=== PATIENT | female | born 1940 | race Caucasian/White ===

== ENCOUNTER 2020-02-10 21:58 | Inpatient (IN) | payer MEDICARE ==
[~2020-02-10] VITALS: Ht 157.5 cm; Wt 74.7 kg
[~2020-02-10 21:58] MED LIST: ATIV1TAB10 PO; CAPT1TAB17 PO; CLAR5TAB PO; COLC1TAB13 PO; CYCL-707 PO; FURO20TA2 PO; GABA-1171 PO; KLOR10TA76 PO; LEVO75TA4 PO; LIPI10TA PO; NATU400T PO; TRAM50TA2 PO; VITATAB11 PO; VITMTA PO; ZOFR4TAB16 PO
[2020-02-11] MEDS ORDERED: LEVOTHYROXINE 75MCG TABLET (0.075MG) PO SCH
[2020-02-11 00:42] VITALS: BP 91/52
[2020-02-11] MEDS ORDERED: ACETAMINOPHEN TAB 650MG DOSE (2X325MG) PO PRN (01:00)
[2020-02-11] MEDS ORDERED: MOM 30ML SUSPENSION UDC PO PRN (01:00)
[2020-02-11] MEDS ORDERED: MAALOX 30 ML SUSP *UDC PO PRN (01:00)
[2020-02-11] MEDS: NS 1,000 ML IV SCH ×2 (01:41→18:16)
[2020-02-11] MEDS: MORPHINE 2 MG/ML 1ML VIAL (J2270) IV PRN ×5 (01:44→20:54)
[2020-02-11] MEDS ORDERED: VITA400C53 PO (01:44)
[2020-02-11] MEDS ORDERED: ALLO10TA PO (01:44)
[2020-02-11] MEDS ORDERED: LISI-538 PO (01:44)
[2020-02-11] MEDS ORDERED: VITATAB31 PO (01:44)
[2020-02-11] MEDS ORDERED: POTA20TA6 PO (01:49)
[2020-02-11] MEDS ORDERED: OMEP1CAP73 PO (01:49)
[2020-02-11] MEDS ORDERED: VENL75CA2 PO (01:49)
[2020-02-11 03:56] VITALS: BP 105/57
--- NOTE | 2020-02-11 03:59 | HPEPDOC ---
[facility] Medical History & Physical Date of Admission Feb 11, 2020 Date of Service: Feb 11, 2020 Attending Physician: DOMINICK NELSON MD History and Physical TIME OF SERVICE: 1:20 am CHIEF COMPLAINT: Fall HISTORY OF PRESENT ILLNESS: This 79-year-old female reports tripping and falling walking yesterday evening. She attributes the fall to tripping over a slab of concrete because she wasn't looking where she was going while she walking. She denied having prodromal dizziness, chest pain, shortness of breath, nausea, vomiting, or diarrhea. As a result of the fall, she developed left-sided hip pain and was diagnosed with a non displaced fracture of the left femoral neck at [facility]. The rest of the workup including, CBC, CMP and chest xray was unremarkable except for WBC count of 12.5 and BUN of 24 . She was transferred here for orthopedic evaluation. REVIEW OF SYSTEMS: 12 point review of systems negative except as listed in HPI PAST MEDICAL/ SURGICAL HISTORY: Chronic hypertension Osteopenia Hypothyroidism status post partial thyroidectomy Dyslipidemia Right wrist surgery Severe diverticulitis requiring partial colectomy Appendectomy Cholecystectomy SOCIAL HISTORY: She doesn't smoke, drink, or use recreational drugs FAMILY HISTORY: CAD, diabetes, CVA ALLERGIES: Please see below. HOME MEDICATIONS: Please see below. PHYSICAL EXAMINATION: Vital Signs Date Time Temp Pulse Resp B/P (MAP) Pulse Ox O2 Delivery O2 Flow Rate FiO2 02/11/20 00:42 97.7 104 18 91/52 (65) 91 Room Air GEN: well-nourished / well developed/ NAD INTEGUMENT: not flushed/ not jaundice CVS: RRR/NMRG/ radial pulses intact / no lower extremity edema LUNGS: able to speak full sentences without stopping to take a breath / lungs are clear to auscultation bilaterally on room air ABDOMEN: Contour (flat) / soft & not tender with palpation : kirby in place MSK/EXTREMITIES: NCAT NEURO: CN 2-12 are grossly intact / speech is not dysarthric PSYCH: alert and oriented to person place and time/ able to understand and follow all commands LABORATORY DATA: See HPI IMAGING: See HPI MICROBIOLOGY: Please see below. ASSESSMENT: Ms. Schneider is a 79-year-old with a history of 2 david dyslipidemia, hypertension, hypothyroidism who was diagnosed at the left femoral neck fracture after tripping and falling; she was transferred from [facility] for orthopedic evaluation. PLAN: 1. Left femoral neck fx 2/2 mechanical fall Her RCRI score is 0 = class 1 risk, since she is older than 65, the next step is to check a pro-BNP, if it is <300 she will not need additional testing prior to proceeding with surgery Plan: admit to [facility] / NPO after midnight w IVF for surgery possibly tomorrow / Ortho consult / pain control w Morphine 2. Osteoporosis She has a hx of osteopenia but by definition now has patient has osteoporosis bc of the fragility fracture Plan: start calcium with Vitamin D/ she can f/u with her PCP for a work-up to r /o secondary causes of osteoporosis and DEXA prior to selecting meds 3. Chronic hypertension BP is low Plan: hold furosemide, lisinopril 4. Hypothyroidism Plan: Levothyroxine DVT PROPHYLAXIS: SCDs DISPOSITION: home after more than 2 midnight's stay Home Medications Scheduled Allopurinol (Allopurinol) 100 Mg Tablet, 100 MG PO BID Atorvastatin Calcium (Lipitor) 10 Mg Tab, 10 MG PO QHS Colchicine (Colchicine) 0.6 Mg Tab, 0.6 MG PO DAILY Furosemide (Furosemide) 20 Mg Tab, 20 MG PO DAILY Gabapentin (Gabapentin) 100 Mg Cap, 100 MG PO BID Levothyroxine Sodium (Levothyroxine Sodium) 75 Mcg Tab, 75 MCG PO DAILY TAKES IN MIDDLE OF THE NIGHT Lisinopril (Lisinopril) 20 Mg Tablet, 20 MG PO QHS Multivitamins (Thera M Plus Tablet) 1 Tab Tab, 1 TAB PO DAILY TAKES AT NOON Omeprazole (Omeprazole) 20 Mg Capsule.dr, 20 MG PO DAILY Potassium Chloride (Potassium Chloride) 20 Meq Tab.er.prt, 20 MEQ PO DAILY Venlafaxine HCl (Venlafaxine HCl ER) 75 Mg Cap.er.24h, 75 MG PO DAILY Vitamin B Complex (Vitamin B Complex) 1 Each Tablet, 1 TAB PO DAILY Vitamin E (Vitamin E) 400 Unit Capsule, 400 UNIT PO DAILY TAKES AT NOON Scheduled PRN Lorazepam (Ativan) 0.5 Mg Tab, 0.5 MG PO TID PRN for ANXIETY Allergies Coded Allergies: Penicillins (Unverified Allergy, Intermediate, RASH, 02/11/20) Sulfa (Sulfonamide Antibiotics) (Unverified Allergy, Intermediate, RASH, 02/11/20) A-FIB/CHADSVASC A-FIB History Current/History of A-Fib/PAF?: No Current PO Anticoag Therapy: No DOMINICK NELSON MD Feb 11, 2020 03:59
[2020-02-11] MEDS ORDERED: NS 500 ML IV ONE (04:00)
[2020-02-11] MEDS: LEVOTHYROXINE 75MCG TABLET (0.075MG) PO SCH (04:39)
[2020-02-11 04:48] LABS: HEMATOCRIT 34.9 % (36.0-47.0); HEMOGLOBIN 11.1 g/dl (12.0-15.5); MEAN CORPUSCULAR HEMOGLOBIN 31.6 pg (27.0-33.0); MEAN CORPUSCULAR HGB CONC 31.8 g/dl (32.0-36.5); MEAN CORPUSCULAR VOLUME 99.4 fl (80.0-96.0); PLATELET COUNT, AUTOMATED 162 10^3/uL (150-450); RED BLOOD COUNT 3.51 10^6/uL (4.00-5.40); WHITE BLOOD COUNT 5.9 10^3/uL (4.0-10.0)
[2020-02-11 04:58] LABS: INR 1.02; PROTHROMBIN TIME 13.6 SECONDS (12.5-14.3)
[2020-02-11 05:16] LABS: ALBUMIN 3.1 GM/DL (3.2-5.2); ALT/SGPT 82 U/L (12-78); BILIRUBIN,TOTAL 0.6 MG/DL (0.2-1.0); BLOOD UREA NITROGEN 24 MG/DL (7-18); CALCIUM LEVEL 8.4 MG/DL (8.8-10.2); CARBON DIOXIDE LEVEL 29 MEQ/L (21-32); CHLORIDE LEVEL 107 MEQ/L (98-107); CREATININE FOR GFR 1.29 MG/DL (0.55-1.30); GLOMERULAR FILTRATION RATE 42.7 (>39); GLUCOSE, FASTING 102 MG/DL (70-100); NT-PRO BNP 1161 PG/ML (<450); SODIUM LEVEL 139 MEQ/L (136-145); TOTAL PROTEIN 6.1 GM/DL (6.4-8.2); TROPONIN I < 0.02 NG/ML (< 0.10)
[2020-02-11] MEDS ORDERED: CLINDAMYCIN 900 MG in IV 1 EA IV SCH (06:15)
[2020-02-11 06:33] VITALS: BP 104/57
[2020-02-11] MEDS: COLCHICINE 0.6 MG TAB PO SCH (10:24)
[2020-02-11] MEDS: allopurinoL 100 MG TAB PO SCH ×2 (10:25→20:47)
[2020-02-11] MEDS: OMEPRAZOLE 20 MG CAP PO SCH (10:25)
[2020-02-11] MEDS: POTASSIUM CHLORIDE 10 MEQ SR TABLET PO SCH (10:26)
[2020-02-11] MEDS: VENLAFAXINE **XR** 75MG CAPSULE PO SCH (10:26)
[2020-02-11] MEDS: GABAPENTIN 100 MG CAP PO SCH ×2 (10:26→20:47)
[2020-02-11] MEDS: LORazepam 0.5 MG TAB PO PRN ×3 (10:33→23:34)
--- NOTE | 2020-02-11 12:54 | REP ---
INDICATION: fx. COMPARISON: None TECHNIQUE: AP and cross-table lateral FINDINGS: There is a slightly impacted left femoral neck fracture. There is no evidence of dislocation or subluxation. IMPRESSION: Left hip fracture as described above. Consider CT. <Electronically signed by Aguilar Hwang > 02/11/20 [id number]
[2020-02-11] MEDS: FUROSEMIDE 20 MG TAB PO SCH (13:56)
[2020-02-11 14:00] VITALS: BP 103/57
--- NOTE | 2020-02-11 19:54 | REP ---
INDICATION: fracture. COMPARISON: None. TECHNIQUE: Axial noncontrast images through the left hip with coronal and sagittal reformations. FINDINGS: There is a mildly impacted nondisplaced femoral neck fracture. Underlying age-related osteopenia and mild degenerative changes are noted through the visualized pelvis/hip. No associated obvious muscular injury or hematoma identified. IMPRESSION: Mildly impacted femoral neck fracture. <Electronically signed by Herminio Taylor > 02/11/20 1950
[2020-02-11 20:02] VITALS: BP 113/73
[2020-02-11] MEDS: ATORVASTATIN 10 MG TAB PO SCH (20:47)
[2020-02-12] VITALS (10 sets, daily range): BP systolic 91–118; BP diastolic 47–72
[2020-02-12] MEDS: MORPHINE 2 MG/ML 1ML VIAL (J2270) IV PRN ×2 (00:52→06:07)
[2020-02-12] MEDS ORDERED: CLINDAMYCIN 900 MG in IV 1 EA IV SCH (06:00)
[2020-02-12 06:06] LABS: HEMATOCRIT 34.5 % (36.0-47.0); HEMOGLOBIN 10.9 g/dl (12.0-15.5); MEAN CORPUSCULAR HEMOGLOBIN 31.8 pg (27.0-33.0); MEAN CORPUSCULAR HGB CONC 31.6 g/dl (32.0-36.5); MEAN CORPUSCULAR VOLUME 100.6 fl (80.0-96.0); PLATELET COUNT, AUTOMATED 148 10^3/uL (150-450); RED BLOOD COUNT 3.43 10^6/uL (4.00-5.40); WHITE BLOOD COUNT 8.1 10^3/uL (4.0-10.0)
[2020-02-12] MEDS: LEVOTHYROXINE 75MCG TABLET (0.075MG) PO SCH (06:07)
[2020-02-12 06:40] LABS: CALCIUM LEVEL 8.1 MG/DL (8.8-10.2); CREATININE FOR GFR 1.24 MG/DL (0.55-1.30); GLOMERULAR FILTRATION RATE 44.7 (>39); POTASSIUM SERUM 4.8 MEQ/L (3.5-5.1)
[2020-02-12] MEDS ORDERED: KETAMINE HCL 200 MG/20 ML VIAL As Ordered ONE (07:44)
[2020-02-12] MEDS ORDERED: MIDAZOLAM INJ 2MG/2ML VIAL (J2250 PER 1MG) As Ordered ONE (07:44)
[2020-02-12] MEDS ORDERED: BUPIVACAINE HCL 0.25% 30ML VIAL As Ordered ONE (08:08)
[2020-02-12] MEDS ORDERED: CLINDAMYCIN 900 MG/50 ML PREMIX BAG As Ordered ONE (08:08)
[2020-02-12] MEDS ORDERED: CLINDAMYCIN INJ 900MG/6ML VIAL As Ordered ONE (08:39)
[2020-02-12] MEDS ORDERED: LIDOCAINE W/EPINEPHRINE 1% 20ML VIAL As Ordered ONE (09:00)
[2020-02-12] MEDS ORDERED: PHENYLephrine HCL 500 MCG/5 ML (100MCG/ML) SYRINGE (J2370) As Ordered ONE (09:16)
[2020-02-12] MEDS ORDERED: ePHEDrine SULFATE 25 MG/5 ML(5MG/ML) SYRINGE As Ordered ONE (09:16)
[2020-02-12] MEDS ORDERED: VASOPRESSIN INJ 20 UNITS/ML VIAL As Ordered ONE (09:24)
--- NOTE | 2020-02-12 09:34 | IPNPDOC ---
Text Note Date of Service The patient was seen on 02/12/20. NOTE Subjective: Patient going for surgery this morning. No overnight events. Patient was on her way to surgery this morning. Patient was seen again in the afternoon after her surgery around 4 PM and she tells me she feels great. She tolerated the surgery well. Tells me she is in minimal pain currently. She has no complaints at this time. Objective: Constitutional: Awake and alert, in no apparent distress ENT: Sclera are clear. Mucosa is moist. Respiratory: Lungs CTA bilaterally. No respiratory distress. No use of accessory muscles. Cardiovascular: RRR S1 and S2 are normal, no murmur Gastrointestinal: Abdomen is soft, non distended, non tender, BS present. : kirby in place Musculoskeletal: No LE edema. Neurologic: No focal neurological deficit. Mental Status: A&O x3, normal affect Skin: Warm, dry Assessment/plan: Ms. Schneider is a 79-year-old with a history of dyslipidemia, hypertension, hypothyroidism who was diagnosed at the left femoral neck fracture after tripping and falling; she was transferred from [place] to [facility] for orthopedic evaluation. Underwent surgery 02/12/2020 which she tolerated well. PLAN: # Left femoral neck fx 2/2 mechanical fall: ok for surgery, euvolemic on exam. echo reviewed by Dr izquierdo EF 75%. IVFs. Surgery 02/12/2020. Pain control. PT/OT. Would likely benefit from subacute rehab. # Elevated BNP: continue lasix PO. Echo reviewed EF 75%. Euvolemic on physical exam. # Osteoporosis: Vit D. Fu with PCP for DEXA and start med choice. # HTN: BP ok. Hold home meds. Monitor and titrate. # Hypothyroidism: levothyroxine # DVT prophylaxis: SCDs. Heparin after surgery. [facility] Fahad BUCHANAN, I+O Fahad BUCHANAN I+O Laboratory Tests 02/12/20 05:49 Vital Signs Date Time Temp Pulse Resp B/P (MAP) Pulse Ox O2 Delivery O2 Flow Rate FiO2 02/12/20 06:17 18 02/12/20 04:00 97.4 121 118/72 (87) 96 Room Air I&O- Last 24 Hours up to 6 AM 02/12/20 06:00 Intake Total 1950 ml Output Total 1100 ml Balance 850 ml CHANTEL DERAS MD Feb 12, 2020 09:34
[2020-02-12] MEDS ORDERED: fentaNYL 100 MCG/2 ML INJECTION (J3010) IV PRN (10:15)
[2020-02-12] MEDS ORDERED: LR 1,000 ML IV SCH (10:15)
[2020-02-12] MEDS ORDERED: MORPHINE 2 MG/ML 1ML VIAL (J2270) IV PRN ×2 (10:15→10:45)
[2020-02-12] MEDS ORDERED: oxyCODONE 5MG TAB PO PRN (10:15)
[2020-02-12] MEDS ORDERED: ONDANSETRON 4MG/2ML VIAL IV PRN ×2 (10:15→10:45)
--- NOTE | 2020-02-12 10:32 | REP ---
INDICATION: LEFT HIP PINNING COMPARISON: None. TECHNIQUE: Intraoperative fluoroscopic imaging using portable C-arm technique. FINDINGS: The patient is status post left hip pinning with normal positioning and alignment to the visualized proximal femur. Total fluoroscopic time 72.5 seconds. IMPRESSION: Satisfactory left hip pinning for impacted femoral neck fracture. <Electronically signed by Herminio Taylor > 02/12/20 1023
[2020-02-12] MEDS ORDERED: MORPHINE 4 MG/ML 1ML VIAL/SYRINGE (J2270) IV PRN (10:45)
[2020-02-12] MEDS ORDERED: ACETAMINOPHEN TAB 650MG DOSE (2X325MG) PO PRN (10:45)
[2020-02-12] MEDS: VENLAFAXINE **XR** 75MG CAPSULE PO SCH (11:42)
[2020-02-12] MEDS: POTASSIUM CHLORIDE 10 MEQ SR TABLET PO SCH (11:42)
[2020-02-12] MEDS: COLCHICINE 0.6 MG TAB PO SCH (11:43)
[2020-02-12] MEDS: OMEPRAZOLE 20 MG CAP PO SCH (11:43)
[2020-02-12] MEDS: GABAPENTIN 100 MG CAP PO SCH ×2 (11:44→20:53)
[2020-02-12] MEDS: FUROSEMIDE 20 MG TAB PO SCH (11:44)
[2020-02-12] MEDS: PERCOCET 5MG/325MG TAB PO PRN ×2 (11:44→20:53)
[2020-02-12] MEDS: LORazepam 0.5 MG TAB PO PRN (11:45)
[2020-02-12] MEDS: LR 1,000 ML IV SCH ×2 (11:45→23:15)
[2020-02-12] MEDS: allopurinoL 100 MG TAB PO SCH ×2 (11:45→20:52)
[2020-02-12] MEDS ORDERED: ceFAZolin SOD 2 GM in IV 1 EA IV ONE (17:00)
[2020-02-12] MEDS: ATORVASTATIN 10 MG TAB PO SCH (20:52)
[2020-02-12] MEDS: ASPIRIN 81 MG ENTERIC TAB PO SCH (20:52)
[2020-02-12] MEDS: LORazepam 0.5 MG TAB PO SCH (20:53)
[2020-02-13 02:00] VITALS: BP 128/87
[2020-02-13] MEDS: LEVOTHYROXINE 75MCG TABLET (0.075MG) PO SCH (06:02)
[2020-02-13] MEDS: PERCOCET 5MG/325MG TAB PO PRN ×3 (06:02→20:08)
[2020-02-13 06:12] VITALS: BP 116/65
[2020-02-13] MEDS: LORazepam 0.5 MG TAB PO SCH ×3 (08:30→20:08)
[2020-02-13] MEDS: ASPIRIN 81 MG ENTERIC TAB PO SCH ×2 (08:31→20:08)
[2020-02-13] MEDS: MIRALAX *UNIT DOSE* 17GM PACKET PO SCH (08:31)
[2020-02-13] MEDS: FUROSEMIDE 20 MG TAB PO SCH (08:31)
[2020-02-13] MEDS: allopurinoL 100 MG TAB PO SCH ×2 (08:31→20:08)
[2020-02-13] MEDS: GABAPENTIN 100 MG CAP PO SCH ×2 (08:31→20:08)
[2020-02-13] MEDS: OMEPRAZOLE 20 MG CAP PO SCH (08:32)
[2020-02-13] MEDS: POTASSIUM CHLORIDE 10 MEQ SR TABLET PO SCH (08:32)
[2020-02-13] MEDS: VENLAFAXINE **XR** 75MG CAPSULE PO SCH (08:32)
[2020-02-13] MEDS: COLCHICINE 0.6 MG TAB PO SCH (08:32)
--- NOTE | 2020-02-13 10:58 | IPNPDOC ---
Text Note Date of Service The patient was seen on 02/13/20. NOTE Subjective: Patient seen and examined this morning. No overnight events. Tells me she is in minimal pain currently. She has no complaints at this time. Sitting up in chair. Has been eating. Objective: Constitutional: Awake and alert, in no apparent distress ENT: Sclera are clear. Mucosa is moist. Respiratory: Lungs CTA bilaterally. No respiratory distress. No use of accessory muscles. Cardiovascular: RRR S1 and S2 are normal, no murmur Gastrointestinal: Abdomen is soft, non distended, non tender, BS present. : kirby in place Musculoskeletal: No LE edema. Neurologic: No focal neurological deficit. Mental Status: A&O x3, normal affect Skin: Warm, dry Assessment/plan: Ms. Schneider is a 79-year-old with a history of dyslipidemia, hypertension, hypothyroidism who was diagnosed at the left femoral neck fracture after tripping and falling; she was transferred from [place] to [facility] for orthopedic evaluation. Underwent surgery 02/12/2020 which she tolerated well. Patient doing well pending evaluation by PT for rehab plan. # Left femoral neck fx 2/2 mechanical fall: Surgery 02/12/2020. Pain control. awaiting PT/OT recommendations. Would benefit from rehab. Ortho recommends aspirin BID for 35 days (end date Mar 19) # Elevated BNP: continue lasix PO. Echo reviewed EF 75%. Euvolemic on physical exam. # Osteoporosis: Vit D. Fu with PCP for DEXA and start med choice. # HTN: BP ok. Hold home meds. Monitor and titrate. # Hypothyroidism: levothyroxine # DVT prophylaxis: SCDs. Heparin after surgery. [facility] Fahad BUCHANAN, I+O VSFahad I+O Vital Signs Date Time Temp Pulse Resp B/P (MAP) Pulse Ox O2 Delivery O2 Flow Rate FiO2 02/13/20 06:32 18 02/13/20 06:12 99.9 108 116/65 (82) 96 Nasal Cannula 2.0 I&O- Last 24 Hours up to 6 AM 02/13/20 06:00 Intake Total 1661 ml Output Total 925 ml Balance 736 ml CHANTEL DERAS MD Feb 13, 2020 10:58
[2020-02-13 14:00] VITALS: BP 116/61
[2020-02-13] MEDS: FLUTICASONE PROP 0.05% NASAL SPRAY 16 GM (FLONASE) NARES SCH ×2 (15:24→20:08)
[2020-02-13] MEDS ORDERED: RIVAROXABAN 10 MG TAB (XARELTO) PO SCH (18:00)
[2020-02-13] MEDS: ATORVASTATIN 10 MG TAB PO SCH (20:08)
[2020-02-13 22:00] VITALS: BP 120/63
[2020-02-14] MEDS: LEVOTHYROXINE 75MCG TABLET (0.075MG) PO SCH (06:00)
[2020-02-14 06:02] VITALS: BP 149/65
--- NOTE | 2020-02-14 07:39 | CR ---
DATE: 02/11/2020 INDICATION: Left hip fracture. HISTORY OF PRESENT ILLNESS: Stormy is a very pleasant 79-year-old female community ambulator without any assistive devices, who tripped over some concrete on 02/10/2020 landing on her left side. She had immediate pain in her left hip and inability to bear weight. She had x-rays at [facility] and those x-rays revealed minimally impacted femoral neck fracture. She requested transfer to [facility], where she was admitted to the hospitalist service. In speaking to the patient, she is very active and does not use any assistive devices. Pain is in the groin. Pain is 6/10 on the pain scale at rest; worse with any movement, and improved with morphine. Pain is described as stabbing. She has some baseline left knee pain from arthritis. For the patient's full past medical history, past surgical history, medications, allergies, social history and review of systems; please see the admitting hospitalist history and physical. PHYSICAL EXAMINATION: GENERAL: Reveals a well appearing female in no acute distress. Alert and oriented x3. NEUROLOGIC: Appropriate mood and affect. CARDIOVASCULAR: +2 DP pulse. PULMONARY: Non-labored breathing. ABDOMEN: Non-distended. SKIN: At the left hip is intact without any lesions. MUSCULOSKELETAL: No deformity in the left leg. Logroll deferred due to known fracture. She can fire EHL, FHL, TA and GS. Sensation to light touch in the foot is intact. IMAGING STUDIES: X-rays AP and lateral left hip from [facility] reveals valgus impacted femoral neck fracture on the AP and on the lateral view, questionable displacement of the femoral neck fracture. I therefore requested a CT scan without I.V. contrast for further fracture evaluation and this confirms that this is a valgus impacted fracture in good alignment and definitely amenable to a hip pinning. ASSESSMENT AND PLAN: Stormy has a valgus impacted left femoral neck fracture. We initially discussed closed reduction percutaneous pinning versus hemiarthroplasty, this is one I would definitely recommend a pinning for. I explained to her the on-call physician for this weekend, Dr. Jay Sprague, will be performing her surgery once she is medically optimized, which turns out will be tomorrow morning. She will have DVT prophylaxis per the hospitalist service and then surgery with Dr. Sprague, and follow-up with Dr. Sprague on an outpatient basis. All of her questions were answered. She agreed with the plan. JASMYNE
[2020-02-14] MEDS: ASPIRIN 81 MG ENTERIC TAB PO SCH ×2 (08:58→20:41)
[2020-02-14] MEDS: OMEPRAZOLE 20 MG CAP PO SCH (08:58)
[2020-02-14] MEDS: POTASSIUM CHLORIDE 10 MEQ SR TABLET PO SCH (08:58)
[2020-02-14] MEDS: MIRALAX *UNIT DOSE* 17GM PACKET PO SCH (08:58)
[2020-02-14] MEDS: VENLAFAXINE **XR** 75MG CAPSULE PO SCH (08:58)
[2020-02-14] MEDS: COLCHICINE 0.6 MG TAB PO SCH (08:58)
[2020-02-14] MEDS: FLUTICASONE PROP 0.05% NASAL SPRAY 16 GM (FLONASE) NARES SCH ×2 (08:59→20:42)
[2020-02-14] MEDS: GABAPENTIN 100 MG CAP PO SCH ×2 (08:59→20:41)
[2020-02-14] MEDS: FUROSEMIDE 20 MG TAB PO SCH (08:59)
[2020-02-14] MEDS: allopurinoL 100 MG TAB PO SCH ×2 (08:59→20:41)
[2020-02-14] MEDS: LORazepam 0.5 MG TAB PO SCH ×3 (08:59→20:41)
[2020-02-14 10:08] LABS: HEMOGLOBIN 11.7 g/dl (12.0-15.5); MEAN CORPUSCULAR HEMOGLOBIN 32.3 pg (27.0-33.0); MEAN CORPUSCULAR HGB CONC 33.4 g/dl (32.0-36.5); MEAN CORPUSCULAR VOLUME 96.7 fl (80.0-96.0); PLATELET COUNT, AUTOMATED 170 10^3/uL (150-450); RED BLOOD COUNT 3.62 10^6/uL (4.00-5.40)
--- NOTE | 2020-02-14 10:34 | IPNPDOC ---
Text Note Date of Service The patient was seen on 02/14/20. NOTE Subjective: Patient seen and examined this morning. No overnight events. Tells me her pain in controlled, shes in good spirits. She has no complaints at this time. Sitting up in chair. Has been eating. Objective: Constitutional: Awake and alert, in no apparent distress ENT: Sclera are clear. Mucosa is moist. Respiratory: Lungs CTA bilaterally. No respiratory distress. No use of accessory muscles. Cardiovascular: RRR S1 and S2 are normal, no murmur Gastrointestinal: Abdomen is soft, non distended, non tender, BS present. Musculoskeletal: No LE edema. Neurologic: No focal neurological deficit. Mental Status: A&O x3, normal affect Skin: Warm, dry Assessment/plan: Ms. Schneider is a 79-year-old with a history of dyslipidemia, hypertension, hypothyroidism who was diagnosed at the left femoral neck fracture after tripping and falling; she was transferred from [place] to [facility] for orthopedic evaluation. Underwent surgery 02/12/2020 which she tolerated well. Patient doing well pending evaluation by PT for rehab plan. # Left femoral neck fx 2/2 mechanical fall: Surgery 02/12/2020. Pain control. awaiting PT/OT recommendations for possible rehab. Ortho recommends aspirin BID for 35 days (end date Mar 19) # Elevated BNP: continue lasix PO. Echo reviewed EF 75%. Euvolemic on physical exam. # Osteoporosis: Vit D. Fu with PCP for DEXA and start med choice. # HTN: BP ok. Hold home meds. Monitor and titrate. # Hypothyroidism: levothyroxine # DVT prophylaxis: SCDs. Heparin. [facility] Fahad BUCHANAN I+O Fahad BUCHANAN I+O Laboratory Tests 02/14/20 09:46 Vital Signs Date Time Temp Pulse Resp B/P (MAP) Pulse Ox O2 Delivery O2 Flow Rate FiO2 02/14/20 06:02 98.8 103 18 149/65 (93) 94 Room Air 02/13/20 22:00 2.0 I&O- Last 24 Hours up to 6 AM 02/14/20 05:59 Intake Total 1180 ml Output Total 1400 ml Balance -220 ml CHANTEL DERAS MD Feb 14, 2020 10:34
[2020-02-14 10:58] LABS: CALCIUM LEVEL 8.7 MG/DL (8.8-10.2); CREATININE FOR GFR 1.09 MG/DL (0.55-1.30); GLOMERULAR FILTRATION RATE 51.8 (>39); POTASSIUM SERUM 4.5 MEQ/L (3.5-5.1)
--- NOTE | 2020-02-14 11:13 | RO ---
DATE OF OPERATION: 02/12/2020 PREOPERATIVE DIAGNOSIS: Left hip femoral neck fracture. POSTOPERATIVE DIAGNOSIS: Left hip femoral neck fracture. PROCEDURE: Close reduction and percutaneous pinning of left hip femoral neck fracture. SURGEON: Jay Sprague MD ANESTHESIA: Spinal. ESTIMATED BLOOD LOSS: Less than 10 ml, replaced with Crystalloid. COMPLICATIONS: No complications. INDICATIONS: Fall, left hip valgus and impacted femoral neck fracture. The patient wished for operative intervention. Consent reviewed in detail including yann discussion of pathology involved, procedure proposed, alternatives including doing nothing, risks included, but not limited to pain, failure, need for more surgery, infection, blood clots or some other risks. The patient agrees to proceed. OPERATIVE COURSE: Once anesthesia was administered, she was positioned in the usual fashion on the fracture table for exposure of the left hip. Once she was thoroughly prepped and draped in the usual fashion, we verified alignment using fluoroscopy. Next, I then made an incision over the lateral femur opposite the lesser trochanter. Advanced a guidewire to the lateral femur under power and then into the femoral head. I verified the position of that guidewire fluoroscopically. I then used the blunt wire guide to place an additional two guide wires and verified their placement fluoroscopically. Next, I then measured for screw length. I drilled the lateral femoral cortices and placed the appropriate length 7.3 cannulated screws. I verified screw placement fluoroscopically in the AP and lateral plane. Next, once this was accomplished, the wound was irrigated and closed with interrupted stitch and Prineo dressing. The patient was then moved to the hospital bed and moved to the recovery room in good condition. For further details, please refer to the medical record. JASMYNE
[2020-02-14] MEDS: HEPARIN SOD (PORCINE) 5000UNITS/ML 1ML VIAL/SYRINGE SQ SCH ×2 (12:25→20:42)
[2020-02-14 14:00] VITALS: BP 145/67
[2020-02-14] MEDS: PERCOCET 5MG/325MG TAB PO PRN (16:52)
[2020-02-14] MEDS: ATORVASTATIN 10 MG TAB PO SCH (20:41)
[2020-02-14 22:00] VITALS: BP 143/68
[2020-02-15] MEDS: PERCOCET 5MG/325MG TAB PO PRN ×2 (01:06→14:27)
[2020-02-15] MEDS: LEVOTHYROXINE 75MCG TABLET (0.075MG) PO SCH (05:57)
[2020-02-15 06:00] VITALS: BP 122/60
[2020-02-15] MEDS ORDERED: ECOT81TA5 PO (06:40)
[2020-02-15] MEDS ORDERED: PERC5TAB12 PO (06:40)
[2020-02-15] MEDS: MIRALAX *UNIT DOSE* 17GM PACKET PO SCH (09:00)
[2020-02-15] MEDS: POTASSIUM CHLORIDE 10 MEQ SR TABLET PO SCH (09:02)
[2020-02-15] MEDS: OMEPRAZOLE 20 MG CAP PO SCH (09:02)
[2020-02-15] MEDS: GABAPENTIN 100 MG CAP PO SCH (09:02)
[2020-02-15] MEDS: VENLAFAXINE **XR** 75MG CAPSULE PO SCH (09:02)
[2020-02-15] MEDS: HEPARIN SOD (PORCINE) 5000UNITS/ML 1ML VIAL/SYRINGE SQ SCH (09:02)
[2020-02-15] MEDS: allopurinoL 100 MG TAB PO SCH (09:03)
[2020-02-15] MEDS: COLCHICINE 0.6 MG TAB PO SCH (09:03)
[2020-02-15] MEDS: ASPIRIN 81 MG ENTERIC TAB PO SCH (09:03)
[2020-02-15] MEDS: LORazepam 0.5 MG TAB PO SCH ×2 (09:03→14:27)
[2020-02-15] MEDS: FLUTICASONE PROP 0.05% NASAL SPRAY 16 GM (FLONASE) NARES SCH (09:06)
[2020-02-15] MEDS ORDERED: FUROSEMIDE 20MG/2ML VIAL (J1940) IV ONE (09:15)
[2020-02-15] MEDS: FUROSEMIDE 20 MG TAB PO SCH (09:33)
--- NOTE | 2020-02-15 09:40 | DS.PDOC ---
Discharge Summary General Date of Admission Feb 11, 2020 at 00:40 Date of Discharge 02/15/20 Discharge Summary PROCEDURES PERFORMED DURING STAY: Close reduction and percutaneous pinning of left hip femoral neck fracture. ADMITTING DIAGNOSES: 1. L femoral neck fracture 2/2 mechanical fall 2. Osteoporosis 3. HTN 4. Hypothyroidism DISCHARGE DIAGNOSES: 1. L femoral neck fracture 2/2 mechanical fall 2. Diastolic CHF 3. Osteoporosis 4. HTN 5. Hypothyroidism COMPLICATIONS/CHIEF COMPLAINT: Left Hip Fracture. HISTORY OF PRESENT ILLNESS: This 79-year-old female reports tripping and falling walking yesterday evening. She attributes the fall to tripping over a slab of concrete because she wasn't looking where she was going while she walking. She denied having prodromal dizziness, chest pain, shortness of breath, nausea, vomiting, or diarrhea. As a result of the fall, she developed left-sided hip pain and was diagnosed with a non displaced fracture of the left femoral neck at [facility]. The rest of the workup including, CBC, CMP and chest xray was unremarkable except for WBC count of 12.5 and BUN of 24 . She was transferred here for orthopedic evaluation. HOSPITAL COURSE: # Left femoral neck fx 2/2 mechanical fall: Surgery 02/12/2020. Pain control. Patient was assessed by physical therapy, deemed appropriate for discharge with home health services, including PT and OT. Home equipment prescriptions were given for shower chair, bedside commode. patient has RW at home. Ortho recomm ends aspirin BID for 35 days (end date Mar 19) for DVT ppx. # Elevated BNP: Echo reviewed EF 75%. Euvolemic on physical exam. One time dose of lasix 20 mg IV given. Increased home lasix to 20 mg PO BID. Close PCP follow up. # Osteoporosis: Vit D. Fu with PCP for DEXA and start med choice. # HTN: BP ok. Hold home meds. Monitor and titrate. # Hypothyroidism: levothyroxine # DVT prophylaxis: SCDs. Heparin. DISCHARGE MEDICATIONS: Please see below. ALLERGIES: Please see below. PHYSICAL EXAMINATION ON DISCHARGE: Constitutional: Awake and alert, in no apparent distress ENT: Sclera are clear. Mucosa is moist. Respiratory: Lungs CTA bilaterally. No respiratory distress. Mild crackles lung bases Cardiovascular: RRR S1 and S2 are normal, no murmur Gastrointestinal: Abdomen is soft, non distended, non tender, BS present. Musculoskeletal: No LE edema. Neurologic: No focal neurological deficit. Mental Status: A&O x3, normal affect Skin: Warm, dry LABORATORY DATA: Please see below. IMAGING: L hip x ray in OR (02/12/20): FINDINGS: The patient is status post left hip pinning with normal positioning and alignment to the visualized proximal femur. Total fluoroscopic time 72.5 seconds. IMPRESSION: Satisfactory left hip pinning for impacted femoral neck fracture. CT L hip (02/11/20): FINDINGS: There is a mildly impacted nondisplaced femoral neck fracture. Underlying age-related osteopenia and mild degenerative changes are noted through the visualized pelvis/hip. No associated obvious muscular injury or hematoma identified. IMPRESSION: Mildly impacted femoral neck fracture. Xray AP LAT L hip (02/11/20) FINDINGS: There is a slightly impacted left femoral neck fracture. There is no evidence of dislocation or subluxation. IMPRESSION: Left hip fracture as described above. Consider CT. PROGNOSIS: good ACTIVITY: use RW, home PT. OT. DIET: 2g Na. DISCHARGE PLAN: Home PT, OT. DISPOSITION: home with home health DISCHARGE INSTRUCTIONS: 1. follow up with PCP 3-5 days 2. follow up with Dr. Sprague 2 weeks 3. please take your medications as prescribed. Lasix 20 mg tablet increased to twice daily. please follow up with pcp shortly to check your kidney function. 4. if you develop fevers, chills, nausea, vomiting, diarrhea, chest pain or shortness of breath, or otherwise worsening of your symptoms, please call 911 or return to the nearest emergency room. ITEMS TO FOLLOWUP ON ON OUTPATIENT: 1. DEXA scan 2. Titrate lasix. DISCHARGE CONDITION: [Stable]. TIME SPENT ON DISCHARGE: 35 minutes Vital Signs/I&Os Vital Signs Date Time Temp Pulse Resp B/P (MAP) Pulse Ox O2 Delivery O2 Flow Rate FiO2 02/15/20 06:00 97.7 95 14 122/60 (80) 96 Room Air 02/13/20 22:00 2.0 I&O- Last 24 Hours up to 6 AM 02/15/20 06:00 Intake Total 1170 ml Balance 1170 ml Laboratory Data Labs 24H Laboratory Tests 2 02/14/20 09:46: Nucleated Red Blood Cells % (auto) 0.0, Anion Gap 6L, Glomerular Filtration Rate 51.8, Calcium Level 8.7L, GH-Poo-H-Type Natriuretic Peptide 2270H CBC/BMP Laboratory Tests 02/14/20 09:46 Discharge Medications Scheduled Allopurinol (Allopurinol) 100 Mg Tablet, 100 MG PO BID, (Reported) Aspirin (Ecotrin) 81 Mg Tablet.dr, 1 TAB PO BID for pain Atorvastatin Calcium (Lipitor) 10 Mg Tab, 10 MG PO QHS, (Reported) Colchicine (Colchicine) 0.6 Mg Tab, 0.6 MG PO DAILY, (Reported) Furosemide (Furosemide) 20 Mg Tab, 20 MG PO BID Gabapentin (Gabapentin) 100 Mg Cap, 100 MG PO BID, (Reported) Levothyroxine Sodium (Levothyroxine Sodium) 75 Mcg Tab, 75 MCG PO DAILY, (Re ported) TAKES IN MIDDLE OF THE NIGHT Lisinopril (Lisinopril) 20 Mg Tablet, 20 MG PO QHS, (Reported) Multivitamins (Thera M Plus Tablet) 1 Tab Tab, 1 TAB PO DAILY, (Reported) TAKES AT NOON Omeprazole (Omeprazole) 20 Mg Capsule.dr, 20 MG PO DAILY, (Reported) Potassium Chloride (Potassium Chloride) 20 Meq Tab.er.prt, 20 MEQ PO DAILY, (Reported) Venlafaxine HCl (Venlafaxine HCl ER) 75 Mg Cap.er.24h, 75 MG PO DAILY, (Reported) Vitamin B Complex (Vitamin B Complex) 1 Each Tablet, 1 TAB PO DAILY, (Reported) Vitamin E (Vitamin E) 400 Unit Capsule, 400 UNIT PO DAILY, (Reported) TAKES AT NOON Scheduled PRN Lorazepam (Ativan) 0.5 Mg Tab, 0.5 MG PO TID PRN for ANXIETY, (Reported) Oxycodone HCl/Acetaminophen (Percocet 5-325 mg Tablet) 1 Each Tablet, 1-2 TAB PO Q4H PRN for PAIN Allergies Coded Allergies: Penicillins (Unverified Allergy, Intermediate, RASH, 02/11/20) Sulfa (Sulfonamide Antibiotics) (Unverified Allergy, Intermediate, RASH, 02/11/20) EVELINE CALHOUN MD Feb 15, 2020 09:40
[2020-02-15] MEDS ORDERED: FURO20TA2 PO (10:51)
--- NOTE | 2020-02-15 10:52 | ECHO ---
DATE OF PROCEDURE: 02/11/2020 Age: 79 Gender: Female Height: 62 inches Weight: 163 pounds Body surface area: 1.75 m2 PATIENT LOCATION: Inpatient [address] [place] [address], Room 5132. REFERRING PHYSICIAN: Levy Sellers MD INDICATION: Murmur, preoperative study. MEASUREMENTS: 2D Measurements: RV 3.5 cm LV 3.8 cm Septum 1.1 cm Posterior wall 1.1 cm Aortic Root 3.0 cm LA 3.3 cm LVEF 75% Doppler Measurements: AV 3.9 msec LVOT 1.17 msec LVOT diameter 1.8 cm Mean AV systolic gradient 34 mmHg Dimensionless index 0.3 MV-E 88, A 158, E/A ratio 0.6 Early mitral deceleration time 243 msec E prime medial 8.4, A prime medial 10.1, E prime lateral 7.9 Average E/E prime ratio 10.8/PCWP 15.3 mmHg PV Not well visualized RVSP 41 mmHg IVC 0.8 cm COMMENTS: Sinus tachycardia without intraventricular conduction disturbance. Somewhat technically challenging study as the study had to be performed in the sitting position. M-mode and two-dimensional echocardiography was performed with pulse, continuous wave, color flow, and tissue Doppler studies. Left ventricular wall thickness upper limits of normal with normal cavity size and hyperkinetic wall motion. Normal left atrial size with grade 1 left ventricular (LV) diastolic dysfunction with current estimated mean left atrial pressure upper limits of normal. Normal right heart chamber sizes and motion with Doppler evidence of mild- moderate pulmonary hypertension. Somewhat small or reduced size of her inferior vena cava (IVC) with adequate respiratory collapse in keeping with a slightly reduced central venous pressure. Normal aortic diameters. No coarctation of the aorta. Three equal size ? cusps of the aortic valve with moderate cusp thickening and reduced cusp separation. Significant transvalvular gradient with dimensionless index suggesting a moderate degree aortic stenosis not severe. Very mild aortic insufficiency. Moderately severe mitral annular calcification with some thickening of the mitral leaflets, but adequate leaflet excursion and no posterior systolic buckling, no more than very mild insufficiency. Normal appearing tricuspid valve with very mild insufficiency. No apparent intracardiac mass or pericardial effusion. MTDD
== END 2020-02-15 15:30 | disposition home or self-care (01) | DRG 481 ==
LOC: M MS5PR 02-11 00:40
PROVIDERS: ADMIT Internal Medicine; ATTEND Family Medicine
PROC: 0SSB04Z Reposition Left Hip Joint with Internal Fixation Device, Open Approach (ICD-10-PCS; principal; 2020-02-12 08:30)
DX: S72.002A Fracture of unspecified part of neck of left femur, initial encounter for closed fracture (principal); I50.30 Unspecified diastolic (congestive) heart failure; I11.0 Hypertensive heart disease with heart failure; E03.9 Hypothyroidism, unspecified; M81.0 Age-related osteoporosis without current pathological fracture; W18.09XA Striking against other object with subsequent fall, initial encounter; Y92.009 Unspecified place in unspecified non-institutional (private) residence as the place of occurrence of the external cause; Z79.899 Other long term (current) drug therapy; Z79.82 Long term (current) use of aspirin; Z88.0 Allergy status to penicillin; E78.5 Hyperlipidemia, unspecified